=== PATIENT | male | born 1995 | race Caucasian/White ===

== ENCOUNTER 2017-04-29 17:11 | Emergency (ER) | payer OTHER ==
[2017-04-29] MEDS: FAMOTIDINE 20 MG TAB PO (19:17)
[2017-04-29] MEDS: DIPHENHYDRAMINE 50 MG INJ IM (19:17)
[2017-04-29] MEDS: METHYLPREDNISOLONE 125 MG INJ IM (19:17)
[2017-04-29] MEDS: LEVALBUTEROL (NEB) 1.25 MG/0.5 ML AMP HHN (19:38)
== END 2017-04-29 20:17 | disposition home or self-care (01) ==
LOC: FTE 17:11
DX: R21 Rash and other nonspecific skin eruption (principal); J45.901 Unspecified asthma with (acute) exacerbation; R05 Cough
CPT/HCPCS: 94664; 96372; 99284-25

== ENCOUNTER 2017-11-26 19:35 | Emergency (ER) | payer MEDICAID, OTHER | END 2017-11-26 23:17 | disposition home or self-care (01) | LOC: FTE 19:35 | DX: F41.9 Anxiety disorder, unspecified (principal); J45.909 Unspecified asthma, uncomplicated; F17.210 Nicotine dependence, cigarettes, uncomplicated | CPT/HCPCS: 99282; Z7502 ==

== ENCOUNTER 2018-03-05 22:17 | Emergency (ER) | payer SELFPAY, MEDICAID ==
[2018-03-05 23:54] LABS: URINE BLOOD (Dip) POC Negative (NEGATIVE); URINE GLUCOSE (Dip) POC Negative (NEGATIVE); URINE KETONES (Dip) POC Negative (NEGATIVE); URINE LEUKOCYTE EST (Dip) POC Negative (NEGATIVE); URINE NITRITE (Dip) POC Negative (NEGATIVE); URINE TOTAL PROTEIN POC Negative (NEGATIVE)
== END 2018-03-06 00:44 | disposition home or self-care (01) ==
LOC: FTE 03-06 00:44
DX: J45.909 Unspecified asthma, uncomplicated (principal); R21 Rash and other nonspecific skin eruption; M54.5 Low back pain; Z76.0 Encounter for issue of repeat prescription
CPT/HCPCS: 81003; 99281

== ENCOUNTER → 2018-06-21 | Emergency (ER) | payer SELFPAY ==
[2018-06-21] MEDS: DIPHENHYDRAMINE 25 MG CAP PO (06:28)
[2018-06-21] MEDS: DEXAMETHASONE 10 MG/ML 1 ML INJ IM (06:28)
== END | disposition home or self-care (01) ==
LOC: FTE 03:36
DX: R21 Rash and other nonspecific skin eruption (principal); J45.909 Unspecified asthma, uncomplicated
CPT/HCPCS: 96372; 99284-25

== ENCOUNTER 2018-12-03 15:11 | Emergency (ER) | payer SELFPAY | END 2018-12-03 16:17 | disposition home or self-care (01) | LOC: E/R 15:11 | DX: J45.901 Unspecified asthma with (acute) exacerbation (principal) | CPT/HCPCS: 99283 ==

== ENCOUNTER 2018-12-11 02:32 | Emergency (ER) | payer SELFPAY ==
[2018-12-11] MEDS: predniSONE 20 MG TAB PO (03:19)
[2018-12-11] MEDS: ALBUTEROL 0.5% (NEB) 2.5 MG/0.5 ML AMP INH (03:23)
== END 2018-12-11 04:13 | disposition home or self-care (01) ==
LOC: FTE 02:32
DX: J45.901 Unspecified asthma with (acute) exacerbation (principal)
CPT/HCPCS: 93005; 94644; 99283-25